=== PATIENT | female | born 1965 | race African-American/Black ===

== ENCOUNTER 2018-11-22 21:14 | Emergency (ER) | payer MEDICAID, OTHER ==
[~2018-11-22] VITALS: Ht 165.1 cm; Wt 81.0 kg
[2018-11-22 21:31] VITALS: BP 156/105
[2018-11-22] MEDS ORDERED: HYDROCODONE/ACETAMINOPHEN 5/325MG TABLET PO ONE (22:30)
== END 2018-11-22 22:55 | disposition home or self-care (01) ==
LOC: ER 21:14
DX: S93.492A Sprain of other ligament of left ankle, initial encounter (principal); X58.XXXA Exposure to other specified factors, initial encounter; Y93.89 Activity, other specified; Y92.89 Other specified places as the place of occurrence of the external cause; Y99.8 Other external cause status
CPT/HCPCS: 73610; 99283

== ENCOUNTER 2021-02-14 11:32 | Emergency (ER) | payer MEDICAID ==
[~2021-02-14] VITALS: Ht 165.1 cm; Wt 90.0 kg
[2021-02-14] MEDS ORDERED: ACETAMINOPHEN 325MG TABLET PO ONE (12:15)
[2021-02-14 13:22] VITALS: BP 176/120
[2021-02-14] MEDS ORDERED: CYCL10TA7 MT (14:58)
[2021-02-14] MEDS ORDERED: NAPR-681 MT (14:59)
== END 2021-02-14 16:11 | disposition home or self-care (01) ==
LOC: ER 11:32
DX: R51.9 Headache, unspecified (principal); M54.2 Cervicalgia; M54.89 Other dorsalgia; V43.52XA Car driver injured in collision with other type car in traffic accident, initial encounter; Y93.89 Activity, other specified; Y92.488 Other paved roadways as the place of occurrence of the external cause
CPT/HCPCS: 72100; 99284